=== PATIENT | female | born 1985 | race Caucasian/White ===

== ENCOUNTER 2018-02-06 21:49 | Observation (INO) | payer OTHER ==
[2018-02-06 22:18] LABS: Glucose,Whole Blood 542 mg/dL (75-99)
[2018-02-06 22:21] LABS: Appearance,Urine Cloudy (Clear); Bacteria,Urine Rare /hpf; Bilirubin,Urine Negative (Negative); Blood,Urine Trace (Negative); Color,Urine Colorless; Glucose,Urine (UA) 4+ (Negative); Ketones,Urine 1+ (Negative); Leukocyte Esterase,Urine Small (Negative); Mucus,Urine Rare /hpf; Nitrite,Urine Negative (Negative); PH, Urine 5.5 (5.0-8.0); Protein,Urine 2+ (Negative); RBC,Urine 8 /hpf (0-5); Specific Gravity,Urine 1.015 (1.001-1.035); Squamous Epithelial Cell,Urine 4 /hpf (0-4); Urobilinogen,Urine <2.0 mg/dL (<2.0); WBC,Urine 3 /hpf (0-5)
[2018-02-06] MEDS ORDERED: SODIUM CHLORIDE 0.9% 1,000 ML IV ONE ×2 (22:36→22:37)
[2018-02-06] MEDS ORDERED: MAG HYDROX/AL HYDROX/SIMETH 30 ML, HYOSCYAMINE ELIXIR 10 ML, CIMETIDINE HCL 300 MG, LID... PO STA ×4 (22:58)
[2018-02-06 23:01] LABS: Basophils # (A) 0.1 k/uL (0-0.2); Basophils % (A) 1 %; Eosinophils # (A) 0.3 k/uL (0-0.7); Eosinophils % (A) 3 %; HCT 34.7 % (34.0-46.0); HGB 11.2 gm/dL (11.4-16.0); Lymphocytes # (A) 1.6 k/uL (1.0-4.8); Lymphocytes % (A) 16 %; MCH 28.9 pg (25.0-35.0); MCHC 32.4 g/dL (31.0-37.0); MCV 89.3 fL (80.0-100.0); Mean Platelet Volume 8.2; Monocytes # (A) 0.6 k/uL (0-1.0); Monocytes % (A) 6 %; Neutrophils # (A) 7.4 k/uL (1.3-7.7); Neutrophils % (A) 74 %; Platelet Count 379 k/uL (150-450); RBC 3.89 m/uL (3.80-5.40); RDW 13.2 % (11.5-15.5); WBC 10.1 k/uL (3.8-10.6)
--- NOTE | 2018-02-06 23:02 | ED ---
Recheck HPI - General Chief Complaint: Recheck/Abnormal Lab/Rx Stated Complaint: Blood Sugar is above 600 Time Seen by Provider: 02/06/18 22:34 Source: patient Mode of arrival: ambulatory Limitations: no limitations - History of Present Illness Initial Comments: Patient is a 32-year-old woman who presents to be evaluated after she had checked her blood sugar and found it to be over 600. The patient states that she does use her scheduled insulin, and that her blood sugar was slightly elevated when she had checked around 4 PM but when she rechecked it was sometime before 9 it was over 600. She also had 3 episodes of vomiting associated. MD Complaint: other (Hyperglycemic) -: hour(s) Returns Today for: other (Hyperglycemia) Symptoms Since Prior Visit: no new symptoms Associated Symptoms: nausea, other (Vomiting) - Related Data Home Medications Medication Instructions Recorded Confirmed Ergocalciferol (Vitamin D2) 50,000 unit PO DIRECTED 02/07/18 02/07/18 [Vitamin D2] Ferrous Sulfate [Iron (65 MG 325 mg PO TID 02/07/18 02/07/18 Elemental)] INSULIN LISPRO (For Pump) [humaLOG 0.01 units SQ-PUMP CONTINUOUS 02/07/18 (For Pump)] Insulin Glargine [Lantus] 18 units SQ HS 02/07/18 02/07/18 Levothyroxine Sodium [Synthroid] 50 mcg PO DAILY 02/07/18 02/07/18 Losartan Potassium 100 mg PO DAILY 02/07/18 02/07/18 Allergies Allergy/AdvReac Type Severity Reaction Status Date / Time codeine Allergy Rash/Hives Verified 02/07/18 08:19 sumatriptan [From Imitrex] Allergy Rash/Hives Verified 02/07/18 08:19 Review of Systems ROS Statement: Those systems with pertinent positive or pertinent negative responses have been documented in the HPI. ROS Other: All systems not noted in ROS Statement are negative. Constitutional: Denies: fever, chills, weakness Respiratory: Denies: cough, dyspnea Cardiovascular: Denies: chest pain, palpitations, syncope Gastrointestinal: Reports: nausea, vomiting. Denies: abdominal pain, diarrhea, hematemesis, melena, hematochezia Genitourinary: Denies: dysuria, hematuria Musculoskeletal: Denies: back pain Skin: Denies: rash Neurological: Denies: headache, weakness Past Medical History Past Medical History: Diabetes Mellitus Additional Past Medical History / Comment(s): KIDNEY DISEASE STAGE 3. HYPOTHYROIDISM. GASTROPARESIS History of Any Multi-Drug Resistant Organisms: None Reported Past Surgical History: Section Additional Past Surgical History / Comment(s): TUBUAL LIGATION Past Psychological History: No Psychological Hx Reported Smoking Status: Never smoker Past Alcohol Use History: Occasional Past Drug Use History: None Reported - Past Family History Sister(s) Family Medical History: Diabetes Mellitus Mother Family Medical History: Hypertension General Exam Limitations: no limitations General appearance: alert, in no apparent distress Head exam: Present: atraumatic, normocephalic Eye exam: Present: normal appearance. Absent: scleral icterus, conjunctival injection ENT exam: Present: normal oropharynx Neck exam: Present: normal inspection Respiratory exam: Present: normal lung sounds bilaterally. Absent: respiratory distress, wheezes, rales, rhonchi, stridor Cardiovascular Exam: Present: regular rate, normal rhythm, normal heart sounds. Absent: systolic murmur, diastolic murmur, rubs, gallop GI/Abdominal exam: Present: soft. Absent: distended, tenderness, guarding, rebound, mass Extremities exam: Present: normal inspection, normal capillary refill. Absent: pedal edema, calf tenderness Back exam: Present: normal inspection. Absent: CVA tenderness (R), CVA tenderness (L) Neurological exam: Present: alert Skin exam: Present: warm, dry, intact, normal color. Absent: rash Course Vital Signs 02/06/18 02/07/18 02/07/18 22:08 01:20 02:14 Temperature 97.8 F 97.9 F Pulse Rate 94 82 Pulse Rate [ 79 Right Supine Pulse Oximetery ] Respiratory 16 20 18 Rate Blood Pressure 187/80 148/98 Blood Pressure 130/70 [Right Arm Supine] O2 Sat by Pulse 100 98 97 Oximetry 02/07/18 04:30 Temperature Pulse Rate 61 Pulse Rate [ Right Supine Pulse Oximetery ] Respiratory 20 Rate Blood Pressure 115/65 Blood Pressure [Right Arm Supine] O2 Sat by Pulse 96 Oximetry Medical Decision Making - Lab Data Result diagrams: 02/06/18 22:45 02/07/18 09:58 Lab Results 05/06/18 05/06/18 05/06/18 Range/Units 22:04 22:04 22:15 WBC (3.8-10.6) k/uL RBC (3.80-5.40) m/uL Hgb (11.4-16.0) gm/dL Hct (34.0-46.0) % MCV (80.0-100.0) fL MCH (25.0-35.0) pg MCHC (31.0-37.0) g/dL RDW (11.5-15.5) % Plt Count (150-450) k/uL Neutrophils % % Lymphocytes % % Monocytes % % Eosinophils % % Basophils % % Neutrophils # (1.3-7.7) k/uL Lymphocytes # (1.0-4.8) k/uL Monocytes # (0-1.0) k/uL Eosinophils # (0-0.7) k/uL Basophils # (0-0.2) k/uL Sodium (137-145) mmol/L Potassium (3.5-5.1) mmol/L Chloride (98-107) mmol/L Carbon Dioxide (22-30) mmol/L Anion Gap mmol/L BUN (7-17) mg/dL Creatinine (0.52-1.04) mg/dL Est GFR (CKD-EPI)AfAm (>60 ml/min/1.73 sqM) Est GFR (CKD-EPI)NonAf (>60 ml/min/1.73 sqM) Glucose (74-99) mg/dL POC Glucose (mg/dL) 542 H (75-99) mg/dL POC Glu Hotel Reservationist ID Brandi Katz Calcium (8.4-10.2) mg/dL Urine Color Colorless Urine Appearance Cloudy H (Clear) Urine pH 5.5 (5.0-8.0) Ur Specific [place] 1.015 (1.001-1.035) Urine Protein 2+ H (Negative) Urine Glucose (UA) 4+ H (Negative) Urine Ketones 1+ H (Negative) Urine Blood Trace H (Negative) Urine Nitrite Negative (Negative) Urine Bilirubin Negative (Negative) Urine Urobilinogen <2.0 (<2.0) mg/dL Ur Leukocyte Esterase Small H (Negative) Urine RBC 8 H (0-5) /hpf Urine WBC 3 (0-5) /hpf Ur Squamous Epith Cells 4 (0-4) /hpf Urine Bacteria Rare H (None) /hpf Urine Mucus Rare H (None) /hpf Urine HCG, Qual Not Detected (Not Detectd) Acetone, Qual (Negative) 02/06/18 02/06/18 02/06/18 Range/Units 22:45 22:45 22:45 WBC 10.1 (3.8-10.6) k/uL RBC 3.89 (3.80-5.40) m/uL Hgb 11.2 L (11.4-16.0) gm/dL Hct 34.7 (34.0-46.0) % MCV 89.3 (80.0-100.0) fL MCH 28.9 (25.0-35.0) pg MCHC 32.4 (31.0-37.0) g/dL RDW 13.2 (11.5-15.5) % Plt Count 379 (150-450) k/uL Neutrophils % 74 % Lymphocytes % 16 % Monocytes % 6 % Eosinophils % 3 % Basophils % 1 % Neutrophils # 7.4 (1.3-7.7) k/uL Lymphocytes # 1.6 (1.0-4.8) k/uL Monocytes # 0.6 (0-1.0) k/uL Eosinophils # 0.3 (0-0.7) k/uL Basophils # 0.1 (0-0.2) k/uL Sodium 133 L (137-145) mmol/L Potassium 4.3 (3.5-5.1) mmol/L Chloride 96 L (98-107) mmol/L Carbon Dioxide 18 L (22-30) mmol/L Anion Gap 19 mmol/L BUN 48 H (7-17) mg/dL Creatinine 2.00 H (0.52-1.04) mg/dL Est GFR (CKD-EPI)AfAm 38 (>60 ml/min/1.73 sqM) Est GFR (CKD-EPI)NonAf 33 (>60 ml/min/1.73 sqM) Glucose 525 H* (74-99) mg/dL POC Glucose (mg/dL) (75-99) mg/dL POC Glu Hotel Reservationist ID Calcium 9.4 (8.4-10.2) mg/dL Urine Color Urine Appearance (Clear) Urine pH (5.0-8.0) Ur Specific [place] (1.001-1.035) Urine Protein (Negative) Urine Glucose (UA) (Negative) Urine Ketones (Negative) Urine Blood (Negative) Urine Nitrite (Negative) Urine Bilirubin (Negative) Urine Urobilinogen (<2.0) mg/dL Ur Leukocyte Esterase (Negative) Urine RBC (0-5) /hpf Urine WBC (0-5) /hpf Ur Squamous Epith Cells (0-4) /hpf Urine Bacteria (None) /hpf Urine Mucus (None) /hpf Urine HCG, Qual (Not Detectd) Acetone, Qual Positive (Negative) Critical Care Time Critical Care Time: Yes (30 minutes) Disposition Clinical Impression: Diabetic ketoacidosis Disposition: ADMITTED IP TO THIS [facility] Condition: Stable Is patient prescribed a controlled substance at d/c from ED?: No
[2018-02-06 23:16] LABS: Calcium 9.4 mg/dL (8.4-10.2); Potassium 4.3 mmol/L (3.5-5.1)
[2018-02-07] MEDS ORDERED: INSULIN REGULAR BOLUS (FROM DRIP BAG) IV ONE (00:44)
[2018-02-07] MEDS ORDERED: INSULIN REGULAR 100 UNIT in SODIUM CHLORIDE 0.9% 100 ML IV SCH (00:45)
[2018-02-07 02:32] LABS: Glucose,Whole Blood 46 mg/dL (75-99)
[2018-02-07 02:32] LABS: Glucose,Whole Blood 45 mg/dL (75-99)
[2018-02-07 03:02] LABS: Glucose,Whole Blood 43 mg/dL (75-99)
[2018-02-07 04:28] LABS: Glucose,Whole Blood 73 mg/dL (75-99)
[2018-02-07] MEDS: SODIUM CHLORIDE 0.9% 1,000 ML IV SCH ×2 (05:15→05:40)
[2018-02-07 05:39] VITALS: BMI 28.3
[2018-02-07] MEDS ORDERED: D5-0.45% NACL WITH KCL 20MEQ/L 1,000 ML IV SCH (06:00)
[2018-02-07] MEDS ORDERED: ONDANSETRON 4 MG/2 ML VIAL IVP PRN (06:04)
[2018-02-07 06:05] LABS: Glucose,Whole Blood 96 mg/dL (75-99)
[2018-02-07 06:33] LABS: Glucose,Whole Blood 120 mg/dL (75-99)
[2018-02-07 06:41] LABS: Phosphorus 3.9 mg/dL (2.5-4.5); Potassium 4.3 mmol/L (3.5-5.1)
[2018-02-07] MEDS ORDERED: INSULIN NPH 300 UNIT/3 ML VIAL SQ ONE (07:01)
[2018-02-07 07:48] LABS: Glucose,Whole Blood 149 mg/dL (75-99)
[2018-02-07 08:32] VITALS: RESP 16; TEMP 96.9
[2018-02-07] MEDS: INSULIN ASPART 100 UNIT/ML 1 ML 10 ML VIAL SQ SCH ×6 (09:06→17:09)
[2018-02-07 09:40] LABS: Glucose,Whole Blood 184 mg/dL (75-99)
[2018-02-07 10:37] LABS: Potassium 5.3 mmol/L (3.5-5.1)
[2018-02-07 12:14] LABS: Glucose,Whole Blood 107 mg/dL (75-99)
[2018-02-07 12:30] VITALS: PULSE 84
[2018-02-07 16:46] LABS: Glucose,Whole Blood 157 mg/dL (75-99)
[2018-02-07 16:49] VITALS: BP 149/92
[2018-02-07 18:56] LABS: Hemoglobin A1C 10.8 % (4.0-6.0)
[2018-02-07] MEDS ORDERED: INSULIN DETEMIR 100 UNIT/ML 10 ML VIAL SQ SCH (21:00)
--- NOTE | 2018-02-07 22:16 | P.HPIM ---
History of Present Illness H&P Date: 02/07/18 Chief Complaint: Elevated blood sugar Patient is a 32-year-old female with a known history of hypertension, diabetes type 2 and hypothyroidism presents to ER with elevated blood sugars when she checked at home which was found to be greater than 600. The patient states that she does use her scheduled insulin, and that her blood sugar was slightly elevated when she had checked around 4 PM but when she rechecked it was sometime before 9 it was over 600. She also had 3 episodes of vomiting associated. Patient came to ER for further evaluation. Patient was found have a stone positive and and now is in DKA. Patient was started on insulin drip and her and gap is closing now. Otherwise patient denied any complaints of fever or chills. No commerce abdominal pain. No chest pain or shortness of breath. No headache or dizziness lightheadedness. No nausea vomiting. Denied any unusual food intake no recent travel no sick contacts no recent illnesses. Denied any cough or sputum production. Patient is on insulin pump at home. On follow with endocrinology clinic. Review of Systems Constitutional: Patient denies any fever or chills . No generalized weakness or weight loss. Abdomen: Patient denied nausea vomiting and diarrhea and abdominal pain. Cardiovascular: Patient denies any chest pain or short of breath no palpitations. Respiratory: patient denied any cough is from production. No shortness of breath Neurologic: Patient denied any numbness or tingling headache. Musculoskeletal: Patient denies any complaints of joint swelling or deformity. Skin: Negative Psychiatric: Negative Endocrine: No heat or cold intolerance. No recent weight gain. Genitourinary: No dysuria or hematuria. All other 14 point ROS negative except the above Past Medical History Past Medical History: Diabetes Mellitus, Hypertension, Thyroid Disorder Additional Past Medical History / Comment(s): KIDNEY DISEASE STAGE 3. HYPOTHYROIDISM. GASTROPARESIS. MIGRAINES. ANEMIA History of Any Multi-Drug Resistant Organisms: None Reported Past Surgical History: Section, Tubal Ligation Additional Past Surgical History / Comment(s): TUBUAL LIGATION Past Anesthesia/Blood Transfusion Reactions: No Reported Reaction Past Psychological History: No Psychological Hx Reported Smoking Status: Never smoker Past Alcohol Use History: Occasional Past Drug Use History: None Reported - Past Family History Sister(s) Family Medical History: Diabetes Mellitus Mother Family Medical History: Hypertension Medications and Allergies Home Medications Medication Instructions Recorded Confirmed Type Ergocalciferol (Vitamin D2) 50,000 unit PO DIRECTED 02/07/18 02/07/18 History [Vitamin D2] Ferrous Sulfate [Iron (65 MG 325 mg PO TID 02/07/18 02/07/18 History Elemental)] INSULIN LISPRO (For Pump) [humaLOG 0.01 units SQ-PUMP CONTINUOUS 02/07/18 History (For Pump)] Insulin Glargine [Lantus] 18 units SQ HS 02/07/18 02/07/18 History Levothyroxine Sodium [Synthroid] 50 mcg PO DAILY 02/07/18 02/07/18 History Losartan Potassium 100 mg PO DAILY 02/07/18 02/07/18 History Allergies Allergy/AdvReac Type Severity Reaction Status Date / Time codeine Allergy Rash/Hives Verified 02/07/18 08:19 sumatriptan [From Imitrex] Allergy Rash/Hives Verified 02/07/18 08:19 Physical Exam Vitals: Vital Signs Temp Pulse Pulse Resp BP BP Pulse Ox 02/07/18 08:00 96.9 F L 76 16 107/62 97 02/07/18 04:30 61 20 115/65 96 02/07/18 02:14 97.9 F 79 18 130/70 97 02/07/18 01:20 82 20 148/98 98 02/06/18 22:08 97.8 F 94 16 187/80 100 Intake and Output 02/06/18 02/07/18 02/07/18 22:59 06:59 14:59 Intake Total 2210.262 Balance 2210.262 Intake: Amount of Fluid Infused ( 2200 ml) Intake, IV Titration 10.262 Amount Insulin Regular 100 unit 10.262 In Sodium Chloride 0.9% 100 ml @ 0.1 UNITS/KG/HR 7.33 mls/hr IV .[id number] [facility] Rx#:[id number] Other: # Voids 1 0 # Bowel Movements 0 Weight 72.575 kg 72.575 kg PHYSICAL EXAMINATION: Patient is lying in the bed comfortably, no acute distress, awake alert and oriented.. HEENT: Normocephalic. Neck is supple. Pupils reactive. Nostrils clear. Oral cavity is moist. Ears reveal no drainage. Neck reveals no JVD, carotid bruits, or thyromegaly. CHEST EXAMINATION: Trachea is central. Symmetrical expansion. Lung trent clear to auscultation and percussion. CARDIAC: Normal S1, S2 with no gallops. No murmurs ABDOMEN: Soft. Bowel sounds normal. No organomegaly. No abdominal bruits. Extremities: reveal no edema. No clubbing or cyanosis Neurologically awake, alert, oriented x3 with well-coordinated movements. No focal deficits noted Skin: No rash or skin lesions. Psychiatric: Coperative. Nonsuicidal Musculoskeletal: No joint swelling or deformity. Normal range of motion. Results CBC & Chem 7: 02/06/18 22:45 02/07/18 09:58 Labs: Abnormal Lab Results - Last 24 Hours (Table) 02/06/18 02/06/18 02/06/18 Range/Units 22:04 22:15 22:45 Hgb (11.4-16.0) gm/dL Sodium 133 L (137-145) mmol/L Potassium (3.5-5.1) mmol/L Chloride 96 L (98-107) mmol/L Carbon Dioxide 18 L (22-30) mmol/L BUN 48 H (7-17) mg/dL Creatinine 2.00 H (0.52-1.04) mg/dL Glucose 525 H* (74-99) mg/dL POC Glucose (mg/dL) 542 H (75-99) mg/dL Urine Appearance Cloudy H (Clear) Urine Protein 2+ H (Negative) Urine Glucose (UA) 4+ H (Negative) Urine Ketones 1+ H (Negative) Urine Blood Trace H (Negative) Ur Leukocyte Esterase Small H (Negative) Urine RBC 8 H (0-5) /hpf Urine Bacteria Rare H (None) /hpf Urine Mucus Rare H (None) /hpf 02/06/18 02/07/18 02/07/18 Range/Units 22:45 02:25 02:27 Hgb 11.2 L (11.4-16.0) gm/dL Sodium (137-145) mmol/L Potassium (3.5-5.1) mmol/L Chloride (98-107) mmol/L Carbon Dioxide (22-30) mmol/L BUN (7-17) mg/dL Creatinine (0.52-1.04) mg/dL Glucose (74-99) mg/dL POC Glucose (mg/dL) 46 L 45 L (75-99) mg/dL Urine Appearance (Clear) Urine Protein (Negative) Urine Glucose (UA) (Negative) Urine Ketones (Negative) Urine Blood (Negative) Ur Leukocyte Esterase (Negative) Urine RBC (0-5) /hpf Urine Bacteria (None) /hpf Urine Mucus (None) /hpf 02/07/18 02/07/18 02/07/18 Range/Units 03:00 04:26 05:36 Hgb (11.4-16.0) gm/dL Sodium (137-145) mmol/L Potassium (3.5-5.1) mmol/L Chloride 109 H (98-107) mmol/L Carbon Dioxide 18 L (22-30) mmol/L BUN 36 H (7-17) mg/dL Creatinine 1.50 H (0.52-1.04) mg/dL Glucose (74-99) mg/dL POC Glucose (mg/dL) 43 L 73 L (75-99) mg/dL Urine Appearance (Clear) Urine Protein (Negative) Urine Glucose (UA) (Negative) Urine Ketones (Negative) Urine Blood (Negative) Ur Leukocyte Esterase (Negative) Urine RBC (0-5) /hpf Urine Bacteria (None) /hpf Urine Mucus (None) /hpf 02/07/18 02/07/18 02/07/18 Range/Units 06:32 07:45 09:37 Hgb (11.4-16.0) gm/dL Sodium (137-145) mmol/L Potassium (3.5-5.1) mmol/L Chloride (98-107) mmol/L Carbon Dioxide (22-30) mmol/L BUN (7-17) mg/dL Creatinine (0.52-1.04) mg/dL Glucose (74-99) mg/dL POC Glucose (mg/dL) 120 H 149 H 184 H (75-99) mg/dL Urine Appearance (Clear) Urine Protein (Negative) Urine Glucose (UA) (Negative) Urine Ketones (Negative) Urine Blood (Negative) Ur Leukocyte Esterase (Negative) Urine RBC (0-5) /hpf Urine Bacteria (None) /hpf Urine Mucus (None) /hpf 02/07/18 02/07/18 Range/Units 09:58 11:59 Hgb (11.4-16.0) gm/dL Sodium (137-145) mmol/L Potassium 5.3 H (3.5-5.1) mmol/L Chloride 110 H (98-107) mmol/L Carbon Dioxide 18 L (22-30) mmol/L BUN 31 H (7-17) mg/dL Creatinine 1.52 H (0.52-1.04) mg/dL Glucose 203 H (74-99) mg/dL POC Glucose (mg/dL) 107 H (75-99) mg/dL Urine Appearance (Clear) Urine Protein (Negative) Urine Glucose (UA) (Negative) Urine Ketones (Negative) Urine Blood (Negative) Ur Leukocyte Esterase (Negative) Urine RBC (0-5) /hpf Urine Bacteria (None) /hpf Urine Mucus (None) /hpf Thrombosis Risk Factor Assmnt - DVT/VTE Prophylaxis DVT/VTE Prophylaxis: Pharmacologic Prophylaxis ordered - Choose All That Apply Any of the Below Risk Factors Present?: No Each Factor Represents 1 point: Obesity (BMI >25) Thrombosis Risk Factor Assessment Total Risk Factor Score: 1 Thrombosis Risk Factor Assessment Level: Low Risk Assessment and Plan Assessment: Acute diabetic ketoacidosis Hypovolemic hyponatremia Acute kidney injury most likely prerenal Hyperglycemia with uncontrolled diabetes type 2 Hypertension Hypothyroidism DVT prophylaxis Plan: Patient was continued on insulin drip and titrate down. Currently and Closed. Blood sugar is better controlled now. Otherwise patient seems to be brittle diabetic. No signs of infection noted. Patient is able to tolerate oral diet now. Patient was otherwise started on insulin sliding scale and aspart 7 units 3 times a day before meals along with 22 units of Lantus in the night. We'll continue to monitor CBC and follow up closely. Time with Patient: Greater than 30
--- NOTE | 2018-02-07 22:18 | P.DS ---
Providers Date of admission: 02/07/18 00:44 Expected date of discharge: 02/07/18 Attending physician: Roz Sullivan Primary care physician: Stated None Hospital Course: Discharge diagnosis Acute diabetic ketoacidosis. Resolved Hypovolemic hyponatremia. Improved Acute kidney injury most likely prerenal. Improved Hyperglycemia with uncontrolled diabetes type 2 Hypertension Hypothyroidism DVT prophylaxis Hospital course Patient is a 32-year-old female with a known history of hypertension, diabetes type 2 and hypothyroidism presents to ER with elevated blood sugars when she checked at home which was found to be greater than 600. The patient states that she does use her scheduled insulin, and that her blood sugar was slightly elevated when she had checked around 4 PM but when she rechecked it was sometime before 9 it was over 600. She also had 3 episodes of vomiting associated. Patient came to ER for further evaluation. Patient was found have a stone positive and and now is in DKA. Patient was started on insulin drip and her and gap is closing now. Otherwise patient denied any complaints of fever or chills. No commerce abdominal pain. No chest pain or shortness of breath. No headache or dizziness lightheadedness. No nausea vomiting. Denied any unusual food intake no recent travel no sick contacts no recent illnesses. Denied any cough or sputum production. Patient is on insulin pump at home. On follow with endocrinology clinic. Patient was continued on insulin drip and titrate down. Currently AG Closed. Blood sugar is better controlled now. Otherwise patient seems to be brittle diabetic. No signs of infection noted. Patient is able to tolerate oral diet now. Patient was otherwise started on insulin sliding scale and aspart 7 units 3 times a day before meals along with 22 units of Lantus in the night. Patient wants to be discharged home and wants to follow with her primary care physician and senior net software developer. Tolerating oral diet and no complaints of chest pain or shortness of breath or abdominal pain otherwise patient is stable to be discharged. Discharge physical examination was done and vitals reviewed. Patient Condition at Discharge: Stable Plan - Discharge Summary New Discharge Prescriptions: Continue Insulin Glargine [Lantus] 18 units SQ HS Losartan Potassium 100 mg PO DAILY Levothyroxine Sodium [Synthroid] 50 mcg PO DAILY INSULIN LISPRO (For Pump) [humaLOG (For Pump)] 0.01 units SQ-PUMP CONTINUOUS Ferrous Sulfate [Iron (65 MG Elemental)] 325 mg PO TID Ergocalciferol (Vitamin D2) [Vitamin D2] 50,000 unit PO DIRECTED Discharge Medication List Ergocalciferol (Vitamin D2) [Vitamin D2] 50,000 unit PO DIRECTED 02/07/18 [ History] Ferrous Sulfate [Iron (65 MG Elemental)] 325 mg PO TID 02/07/18 [History] INSULIN LISPRO (For Pump) [humaLOG (For Pump)] 0.01 units SQ-PUMP CONTINUOUS 04/20 [History] Insulin Glargine [Lantus] 18 units SQ HS 02/07/18 [History] Levothyroxine Sodium [Synthroid] 50 mcg PO DAILY 02/07/18 [History] Losartan Potassium 100 mg PO DAILY 02/07/18 [History] Follow up Appointment(s)/Referral(s): None,Stated [Primary Care Provider] - 1-2 days Patient Instructions/Handouts: Diabetic Ketoacidosis (DC) Activity/Diet/Wound Care/Special Instructions: Find a primary care provider through the [facility] website-directions given to you. Per Dr Beckett use sliding scale provided to you with meals using your short acting home insulin humalog. Confirm your upcoming appointment with your senior net software developer. Discharge Disposition: HOME SELF-CARE
== END 2018-02-07 18:16 | disposition home or self-care (01) ==
LOC: EC 21:49 → MERGE 02-07 00:44 → 6SEL 02-07 00:44 → INTOOBSV 02-07 00:44 → 6SEL 02-07 04:29 → UNDODISIN 02-07 18:16
PROVIDERS: ADMIT Hospitalist; ATTEND Hospitalist
DX: E11.10 Type 2 diabetes mellitus with ketoacidosis without coma (principal); E86.1 Hypovolemia; E87.1 Hypo-osmolality and hyponatremia; N17.9 Acute kidney failure, unspecified; E03.9 Hypothyroidism, unspecified; G43.909 Migraine, unspecified, not intractable, without status migrainosus; D64.9 Anemia, unspecified; I12.9 Hypertensive chronic kidney disease with stage 1 through stage 4 chronic kidney disease, or unspecified chronic kidney disease; E11.22 Type 2 diabetes mellitus with diabetic chronic kidney disease; N18.3 Chronic kidney disease, stage 3 (moderate); E11.43 Type 2 diabetes mellitus with diabetic autonomic (poly)neuropathy; K31.84 Gastroparesis; Z96.41 Presence of insulin pump (external) (internal); Z79.4 Long term (current) use of insulin; Z79.899 Other long term (current) drug therapy; Z79.890 Hormone replacement therapy; Z82.49 Family history of ischemic heart disease and other diseases of the circulatory system; Z88.5 Allergy status to narcotic agent; Z88.8 Allergy status to other drugs, medicaments and biological substances; E66.9 Obesity, unspecified; Z68.28 Body mass index [BMI] 28.0-28.9, adult
CPT/HCPCS: 96361 ×7; 96374; 99284; 36415; 80051; 80048; 82565; 82009; 84100; 82947; 84520; 85025; 81001; 81025; 83036; G0378; J2405; 96360; 99291